=== PATIENT | female | born 1990 | race Caucasian/White ===

== ENCOUNTER 2023-03-01 09:31 | Emergency (ER) | payer BC ==
[~2023-03-01] VITALS: Ht 170.2 cm; Wt 97.5 kg
[2023-03-01 10:02] LABS: BASOPHILS 0.1 % (0-2); EOSINOPHILS 0.2 % (0-6); HEMATOCRIT 38.8 % (35.0-50.0); HEMOGLOBIN 12.6 g/dL (12.0-18.0); LYMPHOCYTES 6.3 % (24-44); MCH 25.6 (27-36); MCHC 32.3 g/dl (30-36); MCV 79.3 fl (81-99); MONOCYTES 8.1 % (0-12); NEUTROPHILS 85.3 % (39-80); PLATELET COUNT 278 K/uL (140-440); RDW 16.9 (10.5-15.0)
[2023-03-01 10:18] LABS: ALBUMIN 3.5 g/dL (3.4-5.0); ALBUMIN/GLOBULIN RATIO 0.76 (1.1-2.4); ANION GAP 13.6 (7-21); BILIRUBIN, TOTAL 0.6 ng/dL (0.2-1.0); BUN/CREATININE RATIO 16.25 (6.0-28.6); CALCIUM 8.7 mg/dL (8.5-10.1); CREATININE, SERUM 0.8 mg/dL (0.55-1.02); POTASSIUM 3.6 mmol/L (3.5-5.1); PROTEIN, TOTAL 8.1 g/dL (6.4-8.2)
[2023-03-01] MEDS ORDERED: GINGER250 MG PO (10:19)
[2023-03-01] MEDS ORDERED: TURMERIC500 M2 PO (10:20)
[2023-03-01] MEDS ORDERED: MULTI VITAMIN1 EACH PO (10:20)
[2023-03-01] MEDS ORDERED: ELDERBERRY350 MG PO (10:20)
[2023-03-01] MEDS ORDERED: SAFFRON176.5 MG PO (10:21)
[2023-03-01] MEDS ORDERED: MAGNESIUM100 MG PO (10:22)
[2023-03-01] MEDS ORDERED: IRON18 MG PO (10:23)
[2023-03-01 11:21] LABS: BILIRUBIN, URINE NEGATIVE (negative); BLOOD/HGB, URINE NEGATIVE (Negative); KETONE, URINE NEGATIVE (Negative); LEUK ESTERASE, URINE NEGATIVE (negative); NITRITE, URINE NEGATIVE (negative)
[2023-03-01] MEDS ORDERED: ONDANSETRON ODT8 MG PO (13:04)
[2023-03-01] MEDS ORDERED: HYDROCODON-ACE1 EA11 PO (13:04)
[2023-03-01 13:40] VITALS: BP 112/67
== END 2023-03-01 13:43 | disposition home or self-care (01) ==
LOC: ED 09:31
PROVIDERS: Emergency Medicine
DX: N94.89 Other specified conditions associated with female genital organs and menstrual cycle (principal); Z91.011 Allergy to milk products; Z91.010 Allergy to peanuts; Z91.018 Allergy to other foods; Z79.899 Other long term (current) drug therapy
CPT/HCPCS: 36415; 74177; 76830; 76856; 80053; 81003; 83690; 84703; 85025; 96361; 96375; 96376; 99284-25; A9270; J1170; J1885; J2405; J7030; Q9967

== ENCOUNTER 2023-03-21 05:30 | Day surgery (SDC) | payer BC ==
[2023-03-16 10:25] VITALS: BP 118/81
[~2023-03-21] VITALS: Ht 170.2 cm; Wt 99.0 kg
[~2023-03-21 05:30] MED LIST: CLARITIN10 M2 PO; COLLANEX1 GM PO; ELDERBERRY350 MG PO; GINGER250 MG PO; HYDROCODON-ACE1 EA11 PO; IRON18 MG PO; MAGNESIUM100 MG PO; MULTI VITAMIN1 EACH PO; ONDANSETRON ODT8 MG PO; SAFFRON176.5 MG PO; TURMERIC500 M2 PO; WOMEN'S DAILY1 EACH PO
[2023-03-21 06:00] VITALS: BP 129/84
[2023-03-21] MEDS ORDERED: ONDANSETRON ODT8 MG PO (06:09)
--- NOTE | 2023-03-21 09:13 | NUR ---
03/21/23 0913 Kylah Harrison 0826 PT ARRIVED IN PACU NON RESPONSIVE TO NOXIOUS STIMULI WITH OPA IN PLACE. 0831 PT REACTIVE. OPA REMOVED. 0840 C/O ABD PAIN 7/10 AND BACK PAIN 6/10. OFIRMEV 1GM GIVEN IV. 0845 REPOSITIONED PT TO L SIDE FOR COMFORT. 0848 C/O ABD PAIN 7/10. FENTANYL 50MCG GIVEN IVP. 0851 C/O NAUSEA. ZOFRAN 4MG GIVEN IVP. 0900 C/O DRY MOUTH. ICE CHIP GIVEN. 0902 PAIN DOWN TO 5/10 IN ABD AND BACK PAIN RESOLVED. FENTANYL 50MCG GIVEN IVP. 0910 REPOSITIONED TO BACK PER PT REQUEST. 09 PAIN IN ABD DOWN TO 2/10.
--- NOTE | 2023-03-21 09:21 | NUR ---
PT ARRIVES TO UNIT VIA STRETCHER FROM PACU. REPORT RECIEVED FROM YOJANA SCHUMACHER WITH AT BEDSIDE. PT REPORTS PAIN IS 3/10 AND STATES THIS IS TOLERABLE AT THIS TIME. PT IS A&O X4, TEARFUL, THERAPEUTIC COMMUNICATION FROM THIS RN AND PROVIDED. JOSE ELIAS HUGGER, ICE WATER, JELLO, AND CRACKERS IN PLACE AT THIS TIME. X3 LAP SITES IN PLACE, SCANT AMOUNT OF SS DRAINAGE AT UMBILICUS AND LLQ LAP SITES. PT REPORTS NO NAUSEA, DIZZINESS, N/T, OR SOB AT THIS TIME. VS TAKEN. PT ON RA W/O2 SATS >90% AT THIS TIME VIA PULSE OX. PT REPORTS NO FURTHER QUESTIONS OR NEEDS AT THIS TIME, CALL LIGHT WITHIN REACH.
[2023-03-21 09:25] VITALS: BP 112/80
--- NOTE | 2023-03-21 10:03 | NUR ---
IN PT ROOM FOR ANSWERED CALL LIGHT. PT STATES NEEDS TO URINE VOID. PT UP W/STANDBY ASSIST TO RESTROOM FOR URINE VOID, SMALL AMOUNT OF BLOOD WHEN WIPING. SMALL AMOUNT OF SS DRAINAGE ON CLAU PAD AT THIS TIME. EXCHANGED FOR NEW CLAU PAD W/MESH PANTIES. PT USES PILLOW FOR ABDOMINAL SUPPORT WITH MOVEMENT AND COUGHING. PT BACK IN BED W/WARM BLANKETS AND JOSE ELIAS HUGGER. VS TAKEN. PT STATES SHE IS DROWSY AT THIS TIME. AT BEDSIDE. PT STATES PAIN IS 2/10, TOLERABLE AT THIS TIME. PT STATES NO CURRENT NAUSEA, DIZZINESS, N/T. SMALL AMOUNT OF DIZZINESS W/AMBULATION BUT PT MAINTAINS STEADY GAIT. PT HAS TOLERATED SMALL AMOUNTS OF JELLO. CALL LIGHT WITHIN REACH, NO FURTHER NEEDS AT THIS TIME.
[2023-03-21 10:10] VITALS: BP 113/72
--- NOTE | 2023-03-21 11:15 | NUR ---
IN PT ROOM FOR VS AND ASSESSMENT. PT REPORTS PAIN IS 2/10 AND MORE ACHEY AT THIS TIME. PT STATES INCREASES W/MOVEMENT AND BECOMES SHARP PAIN AT THAT TIME. PT STATES NO NAUSEA, DIZZINESS, N/T, OR SOB AT THIS TIME. SURGICAL DRESSING REMAINS INTACT, SCANT AMOUNT OF SS SHADOWING REMAINS, NO NEW BLEEDING AT THIS TIME. DISCUSSED WITH PT THAT ALL CRITERIA HAVE BEEN MET. CALL LIGHT WITHIN REACH, PT STATES NO FURTHER NEEDS OR QUESTIONS AT THIS TIME.
[2023-03-21 11:16] VITALS: BP 112/74
--- NOTE | 2023-03-21 12:01 | NUR ---
IN PT ROOM AT THIS TIME TO DISCUSS PLAN OF CARE. PT STATES SHE IS READY AT THIS TIME TO TRY GETTING DRESSED TO DISCHARGE. THIS RN ROOM ASSISTING PT WITH GETTING DRESSED. PT LOOKS DOWN AT UMBILICUS WOUND AND STATES SHE IS EXPERIENCING SLIGHT AMOUNT OF NAUSEA, ALCOHOL SWAB USED AND NAUSEA SUBSIDES QUICKLY. PT POSITIONED IN LAYING DOWN POSITION FOR COMFORT AT THIS TIME. PT STATES NO INCREASE IN PAIN AND NAUSEA SUBSIDED QUICKLY. PT TO LAY DOWN FOR MORE TIME TO INCREASE COMFORTABILITY. CALL LIGHT WITHIN REACH, NO FURTHER NEEDS AT THIS TIME.
[2023-03-21 12:45] VITALS: BP 119/75
--- NOTE | 2023-03-21 12:45 | NUR ---
THIS RN IN ROOM TO ASSIST ASHIA RN W/DISCHARGE. ASHIA RN PROVIDES DISCHARGE EDUCATION, NO FURTHER QUESTIONS AT THIS TIME AND PT AND PT STATE VERBAL UNDERSTANDING. IV'S DC'ED BY ASHIA SCHUMACHER, CATH TIPS INTACT, GAUZE/COBAN IN PLACE. PT ESCORTED OFF OF UNIT VIA THIS RN TO PASSENGER SIDE OF 'S VEHICLE. ALL BELONGINGS IN PT POSSESSION AT THIS TIME. PT STATES NO FURTHER QUESTIONS OR NEEDS AT THIS TIME.
--- NOTE | 2023-03-28 22:58 | OR ---
[facility] [address] [place], [place] [address] Signed DATE OF OPERATION: 03/21/2023 SURGEON: Orlin Toussaint DO PREOPERATIVE DIAGNOSIS: Right ovarian mass. POSTOPERATIVE DIAGNOSES: 1. Pelvic mass, likely endometrioma. 2. Severe endometriosis stage 3 to 4, deep infiltrating endometriosis noted. 3. Severe pelvic and abdominal adhesions. PROCEDURES PERFORMED: 1. Extensive lysis of adhesions, laparoscopic. 2. Pelvic washings. STORE FACILITY TECHNICIAN: Lyric Espino MD ANESTHESIA: General. ESTIMATED BLOOD LOSS: 5 mL. SPECIMEN: Pelvic washings. FINDINGS: Normal external genitalia with normal clitoris, urethral meatus, bilateral [place]'s, and Bartholin glands. Normal cervix and vagina. On laparoscopy, large cystic pelvic mass anterior to the uterus that was densely scarred to the uterus, anterior abdominal wall and bowel. Dense pelvic adhesions nearly completely obliterating the cul-de-sac consistent with stage 3/4 endometriosis. These were evaluated and lysed as able. Dense sigmoid adhesions to the cystic structure that were unable to be dissected. The patient also had omental adhesions to the anterior abdominal wall and some likely endometriosis implants over the diaphragm of the left upper quadrant. Pelvic washings were obtained. Hemostasis noted at the end of the procedure. COMPLICATIONS: Electronically Signed By: ORLIN TOUSSAINT DO (JD) 03/28/23 2258 PATIENT NAME: SINAN FIGUEROA OPERATIVE REPORT DATE OF : 88 REPORT #: [id number] PHYSICIAN: ORLIN TOUSSAINT (PREMA) DO PCP: NO PRIMARY CARE PHYSICIAN REPORT IS CONFIDENTIAL AND NOT TO BE RELEASED WITHOUT AUTHORIZATION [facility] [address] [place], [place] [address] Signed None. INDICATIONS: Ms. Figueroa is a very pleasant 32-year-old female, who was seen in the emergency department with acute onset of abdominal pain. Ultrasound was performed that demonstrated a normal-appearing uterus but a large cystic structure located superior to the bladder and the uterus. Unclear whether or not it was arising from the ovary. The cystic mass was 9.9 x 5.7 x 7.1 cm with some low level internal echogenic debris and thin septum that was felt to be benign. The patient reports no history of severe menstrual cycles or dyspareunia. No family history of breast or ovarian cancer. She was consented for laparoscopic cystectomy versus right salpingo-oophorectomy. Risks, benefits, and alternatives were discussed in detail with the patient. The patient understands and wished to proceed with the procedure. TECHNIQUE: The patient was taken to the operating room where a time-out was performed to confirm correct patient and correct procedure. General anesthesia was adequately established. The patient was prepped and draped in dorsal lithotomy position with feet in Yellofin stirrups. ICPs were on and running and no preoperative antibiotics or heparin was indicated. A Krause catheter was inserted. A weighted speculum was placed in the vagina and the anterior lip of the cervix was grasped with an Allis clamp. The cervix was gently dilated and a [place] uterine manipulator was placed. The surgeon's gloves were changed and attention was turned to the abdomen. Approximately one fingerbreadth below the umbilicus was infiltrated with 0.25% Marcaine with epinephrine and a curvilinear incision was made. The fascia was grasped, elevated, and entered sharply using Metzenbaum scissors. The peritoneum was entered and Breanne operative port was placed without difficulty. Pneumoperitoneum was easily established. 5 mm assist port was placed in the left lower quadrant and an 8 mm expanding port was placed under direct visualization of the right lower quadrant. Survey of the abdomen and pelvis was performed demonstrating large cystic pelvic mass anterior to the uterus, densely scarred to the uterus, anterior abdominal wall and to the bowel. Normal appearing liver, although there are some significant omental adhesions in the upper mid abdomen and then likely endometriosis implants over the diaphragm in the left upper quadrant. Pelvic washings were obtained and sent to pathology for further evaluation. Attention was then turned to the pelvis. Extensive lysis of adhesions of the cystic structure was performed using a combination of blunt dissection with laparoscopic graspers and laparoscopic kittner. The cyst was noted to be very densely adherent to the anterior surface of the uterus and especially adherent to the sigmoid colon on the left side. The cul-de-sac was nearly completely obliterated and this was gently dissected using a combination of blunt dissection and judicious use of LigaSure bipolar cautery. The cul-de-sac was freed and significant adhesions of the bilateral fallopian tubes to the posterior cul-de-sac was identified with significant deep infiltrating endometriosis. Electronically Signed By: ORLIN PATEL) DO ALBINA 03/28/23 0492 PATIENT NAME: SINAN FIGUEROA OPERATIVE REPORT DATE OF : 88 REPORT #: [id number] PHYSICIAN: ORLIN TOUSSAINT) PCP: NO PRIMARY CARE PHYSICIAN REPORT IS CONFIDENTIAL AND NOT TO BE RELEASED WITHOUT AUTHORIZATION [address] [address] Signed Decision was made to terminate the procedure as the patient would likely benefit from one definitive procedure with [facility], likely on a robotic or open platform. The pelvis was irrigated and found to be hemostatic. Pneumoperitoneum was reduced and infraumbilical fascia was repaired using 0 Vicryl in a running nonlocked manner. Skin was reapproximated using 4-0 Monocryl in a subcuticular stitch. The Allis clamp was removed and the patient was taken to the PACU in good and stable condition. Sponge, needle, and instrument count was correct x2 at the end of the procedure. Dr. Espino was present and participated in all portions of procedure. DO JAZLYN Marrero/MODL /[id number] Copies: ~ Electronically Signed By: ORLIN TOUSSAINT DO (JD) 03/28/23 2258 PATIENT NAME: SINAN FIGUEROA OPERATIVE REPORT DATE OF : [birth year] REPORT #: [id number] PHYSICIAN: ORLIN TOUSSAINT DO (JD) PCP: NO PRIMARY CARE PHYSICIAN REPORT IS CONFIDENTIAL AND NOT TO BE RELEASED WITHOUT AUTHORIZATION
== END 2023-03-21 12:50 | disposition home or self-care (01) ==
LOC: OPS 05:30 → DS 05:30 → OPS 07:30
PROVIDERS: ATTEND Obstetrics & Gynecology
PROC: 3E1M38Z Irrigation of Peritoneal Cavity using Irrigating Substance, Percutaneous Approach (ICD-10-PCS; principal; 2023-03-21 07:30)
DX: N80.30 Endometriosis of pelvic peritoneum, unspecified (principal); N83.201 Unspecified ovarian cyst, right side; N73.6 Female pelvic peritoneal adhesions (postinfective)
CPT/HCPCS: 00840; J0131; J1100; J1885; J2250; J2405; J2704; J3010; J3490; J7121